=== PATIENT | female | born 1945 | race Caucasian/White ===

== ENCOUNTER 2024-06-17 12:01 | Emergency (ER) | payer OTHER, SELFPAY ==
[2024-06-17 14:41] VITALS: BP 171/74
--- NOTE | 2024-06-17 14:55 | ED.GENMED ---
History of Present Illness
General
Chief Complaint: Circulation Problem
Source: patient
Exam Limitations: none
Time Seen by Provider: 06/17/24 13:54
Nursing documentation reviewed up to this point in time: agreed with
History of Present Illness
History of Present Illness:
Patient presents to ED secondary to sudden onset of bilateral both feet, extending up to calf, shortly after taking a hot bath this morning, along with pain. Symptoms gradually resolved over time. Over the past 2 months, she has noted bilateral
feet, especially toes discoloration intermittently, with pain. Patient states that she always feels cold in her feet and her hands. Denies loss of sensation. Patient is complaining of numbness sensation in her feet currently. Denies worsening
sensation when walking, although admittedly, she does not check her feet routinely. Patient takes aspirin daily. Denies recent trauma. Denies recent illness. Denies recent change in medications or diet.
Review of Systems
Review of Systems
Allergies reviewed?: Yes
All Other Systems: ROS reviewed and negative except as documented in HPI and ROS
Constitutional: Reports no symptoms
Respiratory: Reports no symptoms; Denies trouble breathing
Cardiac: Reports no symptoms; Denies chest pain
ABD/GI: Reports no symptoms
Musculoskeletal: Reports no symptoms
Skin: Reports other (Leg/feet discoloration)
Neurological: Reports numbness
Phy Exam
Physical Exam
Physical Exam:
Physical Exam
General: no apparent distress, not acutely ill
Neck: supple. no meningeal signs.
Heart: s1/s2 regular rate and rhythm, no murmur.
Lungs: no acute respiratory distress. clear bilaterally
Abdomen: normal bowel sounds. not tender.
Neuro: alert and oriented. no focal neurological deficits
Skin: no rash
Psychiatric: well kept. interactive and cooperative
Extremities: no edema. no calf tenderness. normal DPP b/l
Course
Orders/Labs/Results
Orders:
Orders
06/17/24 14:04
Lower Ext Arterial & SLICK US [US Periph Art LOWER Ext w SLICK] Urgent
Comment:
Reason For Exam: pain w discoloration
Vital Signs
Initial and Last Documented VS:
Initial Vital Signs
BP
171/74
06/17/24 14:41
Last Documented Vital Signs
BP Pulse Ox
129/90 97
06/17/24 16:31 06/17/24 16:32
MDM/Problems Addressed
MDM/Problems Addressed:
Ultrasound report reviewed and discussed with patient and spouse. Patient otherwise remains asymptomatic during observation. Patient likely does have peripheral vascular disease, with intermittent symptoms in the recent past. As such, patient
will be referred to her primary care physician as well as vascular surgeon for an outpatient consultation. Advised to return to ED with worsening symptoms.
*Critical Care Note
Total Time (30-74mins, 75-104mins- exclusive of procedures): Not Applicable
ED Attending Note
-
Portions of this chart may have been created with voice recognition software.� Occasional wrong word or��sound alike� substitutions may have occurred due to the inherent limitations of voice recognition software.
Discharge Plan
Departure
Patient Disposition: Home (Routine Discharge)
Date of Disposition: 06/17/24
Time of Disposition: 16:00
Patient with high blood pressure during this ER visit?: Yes
Condition: Good
Discharge Problem:
Peripheral vascular disease
Instructions: Peripheral Vascular (Arterial) Disease (DC)
Referrals:
Adalberto Wise MD [Family Provider] -
Rafael Ha III, MD [Active] -
Activity Restrictions/Additional Instructions:
As discussed, please follow-up with your primary care physician and/or referred to vascular surgeon for further evaluation and treatment. Please consider returning to ED with worsening symptoms.
Interventions
Interventions:
*Risk Screen - Suicide Last Done: 06/17/24 14:44
*General Assessment Last Done: 06/17/24 14:44
*Neglect/Abuse Screening Last Done: 06/17/24 16:34
ED- Fall Risk Assessment Last Done: 06/17/24 16:34
*ED COVID-19 Vaccine History Last Done: 06/17/24 14:44
*Nursing Disposition Last Done: 06/17/24 16:34
ED-Peripheral Vascular Assessment Last Done: 06/17/24 15:00
Discharge Date and Time
Discharge Date/Time: 06/17/24 16:35
Print Language: SINHALA
[2024-06-17 16:31] VITALS: BP 129/90
== END 2024-06-17 16:35 | disposition home or self-care (01) ==
LOC: EMR 12:01
PROVIDERS: EMERGENCY PHYSICIAN Emergency Medicine; FAMILY PHYSICIAN Internal Medicine
DX: I73.9 Peripheral vascular disease, unspecified (principal); Z79.82 Long term (current) use of aspirin
CPT/HCPCS: 99284; 93922; 93925

== ENCOUNTER 2024-10-03 16:12 | Emergency (ER) | payer OTHER, SELFPAY ==
[2024-10-03 16:16] VITALS: BP 170/88
[2024-10-03 16:40] LABS: % Basophils 0.8 % (0-2); % Eosinophils 3.1 % (0-6); % Immature Granulocytes 0.3 % (0-0.5); % Lymphocytes 25.7 % (20.5-51.1); % Monocytes 6.4 % (1.7-9.3); % Neutrophils 63.7 % (42.2-75.2); Absolute Basophils 0.1 10^3/uL (0-0.2); Absolute Eosinophils 0.2 10^3/uL (0-0.7); Absolute Lymphocytes 1.9 10^3/uL (1.2-3.4); Absolute Monocytes 0.5 10^3/uL (0.1-0.6); Absolute Neutrophils 4.7 10^3/uL (1.4-6.5); Hematocrit 46.9 % (37.0-47.0); Hemoglobin 16.5 g/dL (12.0-16.0); Mean Corp Hgb Conc. 35.2 g/dL (33.0-37.0); Mean Corpuscular Hgb 31.9 pg (27.0-31.0); Mean Corpuscular Volume 90.5 fL (81.0-99.0); Mean Platelet Volume 9.4 fL (7.4-10.4); Nucleated Red Blood Cells % 0 %; Platelet Count 277 10^3/uL (130-400); Red Blood Cell Count 5.18 10^6/uL (4.20-5.40); Red Cell Dist. Width 12.8 % (11.5-14.5); White Blood Cell Count 7.4 10^3/uL (4.8-10.8)
[2024-10-03 16:57] LABS: ALT (SGPT) 37 U/L (0-35); AST (SGOT) 33 U/L (14-36); Albumin 5.1 g/dl (3.5-5.0); Alkaline Phosphatase 84 U/L (38-126); Blood Urea Nitrogen 17 mg/dl (7-17); Calcium 10.5 mg/dl (8.4-10.2); Carbon Dioxide 25 mmol/L (22-30); Chloride 105 mmol/L (98-107); Glucose 127 mg/dl (70-99); Potassium 4.2 mmol/L (3.5-5.1); Sodium 141 mmol/L (135-145); Total Bilirubin 0.7 mg/dl (0.2-1.3); Total Protein 7.9 g/dl (6.3-8.2); eGFR > 60.00
[2024-10-03 17:00] LABS: COVID-19 Antigen Negative (Negative)
[2024-10-03 17:04] LABS: Troponin I < 0.012 ng/ml
[2024-10-03 18:23] VITALS: BMI 27.0
[2024-10-03 18:24] VITALS: BP 161/79
[2024-10-03 18:56] VITALS: BP 182/87
[2024-10-03 19:00] VITALS: BP 167/75
--- NOTE | 2024-10-03 19:05 | ED.GENMED ---
History of Present Illness
<Michael Allen DO - Last Filed: 10/03/24 19:12>
General
Chief Complaint: Weakness
Time Seen by Provider: 10/03/24 18:04
<JUAREZ Mcmullen Jr. Last Filed: 10/03/24 20:27>
General
Source: patient
Exam Limitations: none
Nursing documentation reviewed up to this point in time: agreed with
History of Present Illness
History of Present Illness:
79-year-old female past medical history of hypertension hyperlipidemia, GERD presenting to the emergency department with concerns of neck pain over the past few days also felt some mild lightheadedness with walking secondary to the pain also notes
her blood pressure was elevated at home. Denies any chest pain shortness of breath numbness or weakness. No fevers.
Review of Systems
<Salvador Lopez Jr., PA-C - Last Filed: 10/03/24 20:27>
Review of Systems
Allergies reviewed?: Yes
All Other Systems: ROS reviewed and negative except as documented in HPI and ROS
Phy Exam
<JUAREZ Mcmullen Jr. Last Filed: 10/03/24 20:27>
Physical Exam
Physical Exam:
GENERAL: Alert , in no apparent distress
EYE: pupils equal and reactive
NECK: Supple, no significant adenopathy.
ENT: o/p clr, mmm.
CARDIAC: Regular rate and rhythm .
LUNGS: Clear breath sounds bilaterally, no acute respiratory distress, no wheezes/rales/rhonchi
ABDOMEN: Soft, without focal tenderness, no r/g, no cvat
NEUROLOGICAL: Alert and oriented, no focal neuro deficits
SKIN: Warm and dry, skin intact.
MUSCULOSKELETAL: No edema, well perfused.
PSYCH: Normal and appropriate interaction.
Course
<DO Danelle Georges Last Filed: 10/03/24 19:12>
Orders/Labs/Results
Orders:
Orders
10/03/24 16:16
ECG [Electrocardiogram (*1)] Urgent
Reason for Study: Fatigue / Weakness
EKG- Treatment ONCE
10/03/24 16:33
COVID-19 Antigen Urgent
Source: Nasal Swab
Complete Blood Count/With Diff Urgent
Comprehensive Metabolic Panel Urgent
Troponin I Urgent
Influenza A+B Rapid Molecular Urgent
RODRIGUEZ Source: Nasal Swab
Specimen Description:
10/03/24 18:43
Acetaminophen [Tylenol] 1,000 mg PO NOW STA
Ketorolac [Toradol] 15 mg IM NOW STA
Abnormal Lab Results
10/03/24
16:33
Hgb 16.5 H g/dL
(12.0-16.0)
MCH 31.9 H pg
(27.0-31.0)
Glucose 127 H mg/dl
(70-99)
Calcium 10.5 H mg/dl
(8.4-10.2)
ALT 37 H U/L
(0-35)
Albumin 5.1 H g/dl
(3.5-5.0)
10/03/24 16:33
10/03/24 16:33
Vital Signs
Initial and Last Documented VS:
Initial Vital Signs
Temp Pulse Resp BP Pulse Ox
98.0 F 88 17 170/88 99
10/03/24 16:16 10/03/24 16:16 10/03/24 16:16 10/03/24 16:16 10/03/24 16:16
Last Documented Vital Signs
Temp Pulse Resp BP Pulse Ox
98.0 F 77 17 167/75 96
10/03/24 16:16 10/03/24 18:25 10/03/24 16:16 10/03/24 19:00 10/03/24 19:45
<Salvador Lopez Jr., PA-C - Last Filed: 10/03/24 20:27>
Orders/Labs/Results
Orders:
Orders
10/03/24 16:16
ECG [Electrocardiogram (*1)] Urgent
Reason for Study: Fatigue / Weakness
EKG- Treatment ONCE
10/03/24 16:33
COVID-19 Antigen Urgent
Source: Nasal Swab
Complete Blood Count/With Diff Urgent
Comprehensive Metabolic Panel Urgent
Troponin I Urgent
Influenza A+B Rapid Molecular Urgent
RODRIGUEZ Source: Nasal Swab
Specimen Description:
10/03/24 18:43
Acetaminophen [Tylenol] 1,000 mg PO NOW STA
Ketorolac [Toradol] 15 mg IM NOW STA
Abnormal Lab Results
10/03/24
16:33
Hgb 16.5 H g/dL
(12.0-16.0)
MCH 31.9 H pg
(27.0-31.0)
Glucose 127 H mg/dl
(70-99)
Calcium 10.5 H mg/dl
(8.4-10.2)
ALT 37 H U/L
(0-35)
Albumin 5.1 H g/dl
(3.5-5.0)
10/03/24 16:33
10/03/24 16:33
Vital Signs
Initial and Last Documented VS:
Initial Vital Signs
Temp Pulse Resp BP Pulse Ox
98.0 F 88 17 170/88 99
10/03/24 16:16 10/03/24 16:16 10/03/24 16:16 10/03/24 16:16 10/03/24 16:16
Last Documented Vital Signs
Temp Pulse Resp BP Pulse Ox
98.0 F 77 17 167/75 96
06/07/25 16:16 10/03/24 18:25 10/03/24 16:16 10/03/24 19:00 10/03/24 19:45
<Salvador Lopez Jr., PA-C - Last Filed: 10/03/24 20:27>
MDM/Problems Addressed
MDM/Problems Addressed:
79-year-old female presenting to the emergency department today with concerns of mainly neck discomfort does have a chronic neck pain denies this being much different than usual denies numbness weakness fevers. No stiffness to the neck on
assessment no overlying skin changes. Initial blood pressure elevated but given Motrin and Tylenol with complete resolution of symptoms and blood pressure improving. Labs unremarkable. Patient no distress able to ambulate here. Stable for close
outpatient follow-up. Return precautions given.
<Salvador Lopez Jr., PA-C - Last Filed: 10/03/24 20:27>
*Critical Care Note
Total Time (30-74mins, 75-104mins- exclusive of procedures): Not Applicable
ED Attending Note
<Michael Allen DO - Last Filed: 10/03/24 19:12>
ED Attending Note
Patient seen and examined by attending physician: Yes
I performed the substantive portion of visit, reviewed & personally made and approve the management plan that is documented in note by myself or YRN.: Yes
ED Attending Note:
I have seen and evaluated the patient with a [id number] encounter. I have spoken to the advance practicer provider and involved in the medical history, the physical exam, medical decision making.
Evaluation and management service: agree unless noted differently below.
Results interpretation: agree unless noted differently below.
Focused HPI: 79-year-old female presenting with generalized weakness fatigue. Patient complains of chronic neck pain.
Physical exam: Sitting bed comfortably. Intermittent walking around the room. Heart regular rate and rhythm. No meningismus
Medical Decision Making: Blood work without clinically relevant abnormalities. Will treat neck pain and reassess
-
Portions of this chart may have been created with voice recognition software.� Occasional wrong word or��sound alike� substitutions may have occurred due to the inherent limitations of voice recognition software.
Discharge Plan
Departure
Patient Disposition: Home (Routine Discharge)
Date of Disposition: 10/03/24
Time of Disposition: 20:20
Patient with high blood pressure during this ER visit?: No
Condition: Good
Covid-19: Not Applicable
Discharge Problem:
Neck sprain
Instructions: Sprain
Prescriptions:
New
naproxen 500 mg tablet
500 mg PO BID 7 Days Qty: 14 0RF
Referrals:
Adalberto Wise MD [Family Provider, Internal Medicine]
Richmond Rudd MD [Active, Anesthesiology]
Activity Restrictions/Additional Instructions:
You came to the emergency department today with concerns of a neck neck pain and additional symptoms. Here you have a reassuring assessment. Please follow closely as an outpatient. Return for any worsening, new or concerning symptoms.
Interventions
Interventions:
*Risk Screen - Suicide Last Done: 10/03/24 16:18
*General Assessment Last Done: 10/03/24 16:18
*Neglect/Abuse Screening Last Done: 10/03/24 16:18
*ED COVID-19 Vaccine History Last Done: 10/03/24 16:18
ED- Cardiac Assessment Last Done: 10/03/24 18:26
ED- Neurological Assessment Last Done: 10/03/24 18:26
ED- Pulmonary Assessment Last Done: 10/03/24 18:26
Discharge Date and Time
Print Language: ARMENIAN
[2024-10-03] MEDS: TYLENOL 1000 MG PO (19:06)
[2024-10-03] MEDS: TORADOL 15 MG IM (19:07)
[2024-10-03 20:00] VITALS: BP 143/68
== END 2024-10-03 21:18 | disposition home or self-care (01) ==
LOC: EMR 16:12
PROVIDERS: Emergency Medicine; EMERGENCY PHYSICIAN Student in an Organized Health Care Education/Training Program; FAMILY PHYSICIAN Internal Medicine
DX: S13.9XXA Sprain of joints and ligaments of unspecified parts of neck, initial encounter (principal); R53.1 Weakness; R42 Dizziness and giddiness; Z11.52 Encounter for screening for COVID-19; I10 Essential (primary) hypertension; E78.5 Hyperlipidemia, unspecified; K21.9 Gastro-esophageal reflux disease without esophagitis; G89.29 Other chronic pain
CPT/HCPCS: 99284; 96372; 80053; 84484; 85025; 87502; 87811; 93005

== ENCOUNTER 2025-03-07 09:39 | Emergency (ER) | payer OTHER, SELFPAY ==
[2025-03-07] VITALS (12 sets, daily range): BP systolic 116–193; BP diastolic 60–87; BMI 27.9
[2025-03-07 11:20] LABS: ALT (SGPT) 35 U/L (0-35); AST (SGOT) 29 U/L (14-36); Albumin 5.3 g/dl (3.5-5.0); Alkaline Phosphatase 96 U/L (38-126); Blood Urea Nitrogen 15 mg/dl (7-17); Calcium 10.6 mg/dl (8.4-10.2); Carbon Dioxide 26 mmol/L (22-30); Chloride 101 mmol/L (98-107); Estimated Creatinine Clearance 59 ml/min; Glucose 114 mg/dl (70-99); Potassium 4.3 mmol/L (3.5-5.1); Sodium 137 mmol/L (135-145); Total Protein 8.5 g/dl (6.3-8.2); eGFR > 60.00
[2025-03-07 11:22] LABS: Hematocrit 48.6 % (37.0-47.0); Hemoglobin 16.6 g/dL (12.0-16.0); Mean Corp Hgb Conc. 34.2 g/dL (33.0-37.0); Mean Corpuscular Volume 92.2 fL (81.0-99.0); Nucleated Red Blood Cells % 0 %; Platelet Count 265 10^3/uL (130-400); Red Cell Dist. Width 12.6 % (11.5-14.5)
[2025-03-07] MEDS: VALIUM 2 MG PO (11:33)
--- NOTE | 2025-03-07 11:48 | ED.GENMED ---
History of Present Illness
General
Chief Complaint: Facial Problem
Source: patient and spouse
Exam Limitations: none
Time Seen by Provider: 03/07/25 10:32
Nursing documentation reviewed up to this point in time: agreed with
History of Present Illness
History of Present Illness:
Patient presents to ED secondary to 3-day history of persistent, intermittent right-sided neck pain, radiating up to her face. Denies headache. Denies dizziness. No blurry vision. Denies loss of sensation or weakness. Denies difficulty with
speech. Denies difficulty with swallowing. Denies difficulty with ambulation. Denies trauma. Patient does state that she does have chronic neck pain, but states that her symptoms are different than what she experiences daily. Of note, patient
does mention that on the day of her onset of pain, earlier in the day, she had bent down to cut her toenails. But at that time, she did not experience any pain. Denies recent change in activities. Denies direct trauma.
Review of Systems
Review of Systems
Allergies reviewed?: Yes
All Other Systems: ROS reviewed and negative except as documented in HPI and ROS
Constitutional: Reports no symptoms
Cardiac: Reports no symptoms
ABD/GI: Reports no symptoms
Musculoskeletal: Reports neck pain
Skin: Reports no symptoms
Neurological: Reports no symptoms; Denies headache, weakness or numbness
Phy Exam
Physical Exam
Physical Exam:
Physical Exam
General: mild distress, not acutely ill. afebrile
Head: nc/at. eomi
Neck: supple. no meningeal signs. normal posterior pharynx. no midline tenderness
Heart: s1/s2 regular rate and rhythm
Lungs: no acute respiratory distress. clear bilaterally
Abdomen: normal bowel sounds. not tender.
Neuro: alert and oriented x 3. no focal neurological deficits
Skin: no rash
Psychiatric: well kept. interactive and cooperative
Extremities: no edema. no calf tenderness.
Course
Orders/Labs/Results
Orders:
Orders
03/07/25 10:58
Complete Blood Count/With Diff Urgent
Comprehensive Metabolic Panel Urgent
03/07/25 11:08
CT Head & Neck Angio W/wo IV Urgent
Comment:
Reason For Exam: neck pain/left facial numbness w twitching
03/07/25 11:10
Diazepam [Valium] 2 mg PO NOW STA
03/07/25 13:57
Dexamethasone Pf [Decadron] 10 mg PO NOW STA
Abnormal Lab Results
03/07/25
10:58
Hgb 16.6 H g/dL
(12.0-16.0)
Hct 48.6 H %
(37.0-47.0)
MCH 31.5 H pg
(27.0-31.0)
Absolute Neuts (auto) 6.6 H 10^3/uL
(1.4-6.5)
Lymphocytes % 19.7 L %
(20.5-51.1)
Glucose 114 H mg/dl
(70-99)
Calcium 10.6 H mg/dl
(8.4-10.2)
Total Protein 8.5 H g/dl
(6.3-8.2)
Albumin 5.3 H g/dl
(3.5-5.0)
03/07/25 10:58
03/07/25 10:58
Vital Signs
Initial and Last Documented VS:
Initial Vital Signs
Temp Pulse Resp BP Pulse Ox
98.4 F 104 18 116/87 98
03/07/25 09:41 03/07/25 09:41 03/07/25 09:41 03/07/25 09:41 03/07/25 09:41
Last Documented Vital Signs
Temp Pulse Resp BP Pulse Ox
98.2 F 72 16 148/69 99
03/07/25 14:36 03/07/25 14:36 03/07/25 14:36 03/07/25 14:36 03/07/25 14:36
MDM/Problems Addressed
MDM/Problems Addressed:
CTA report reviewed and discussed with patient. Patient otherwise remains afebrile, hemodynamically stable, and neurologically intact. History and exam consistent with likely intermittent muscle spasm from underlying cervical disease with nerve
impingement. As such, patient will be treated supportively with Tylenol/Motrin, warm compress, along with dose of Decadron. Will recommend PCP follow-up as an outpatient, with potential MRI, if symptoms persist.
*Pulse Oximetry
SaO2: 60
Oxygen Mode of Delivery: Room air
Patient hypoxic: no
*Critical Care Note
Total Time (30-74mins, 75-104mins- exclusive of procedures): Not Applicable
ED Attending Note
-
Portions of this chart may have been created with voice recognition software.� Occasional wrong word or��sound alike� substitutions may have occurred due to the inherent limitations of voice recognition software.
Discharge Plan
Departure
Patient Disposition: Home (Routine Discharge)
Date of Disposition: 03/07/25
Time of Disposition: 13:59
Patient with high blood pressure during this ER visit?: Yes
Condition: Fair
Discharge Problem:
Neck pain
Instructions: Neck pain - ED (DC)
Prescriptions:
New
diazepam [Valium] 2 mg tablet
2 mg PO TID PRN (Reason: muscle spasm) Qty: 7 0RF
No Action
naproxen 500 mg tablet
500 mg PO BID 7 Days Qty: 14 0RF
Referrals:
Trent Levine DO [Family Provider]
Activity Restrictions/Additional Instructions:
As discussed, please follow-up with your primary care physician for reevaluation, including potential MRI cervical spine as an outpatient, if symptoms persist. Your prescription has been sent electronically to [facility] pharmacy in [place].
Interventions
Interventions:
*Risk Screen - Suicide Last Done: 03/07/25 09:41
*General Assessment Last Done: 03/07/25 10:18
*Neglect/Abuse Screening Last Done: 03/07/25 10:18
*ED- Fall Risk Assessment Last Done: 03/07/25 14:36
*ED COVID-19 Vaccine History Last Done: 03/07/25 10:18
*ED Influenza Vaccine History Last Done: 03/07/25 10:18
*Nursing Disposition Last Done: 03/07/25 14:36
ED- Neurological Assessment Last Done: 03/07/25 10:18
ED-Skin Assessment Last Done: 03/07/25 10:18
Discharge Date and Time
Discharge Date/Time: 03/07/25 15:17
Print Language: ZAMBIAN
[2025-03-07] MEDS: DECADRON 10 MG PO (14:30)
== END 2025-03-07 15:17 | disposition home or self-care (01) ==
LOC: EMR 09:39
PROVIDERS: EMERGENCY PHYSICIAN Emergency Medicine; FAMILY PHYSICIAN Family Medicine
DX: M54.2 Cervicalgia (principal); G89.29 Other chronic pain; R03.0 Elevated blood-pressure reading, without diagnosis of hypertension
CPT/HCPCS: 99284; 70496; 70498; 80053; 85025; Q9967